=== PATIENT | male | born 1980 | race Caucasian/White ===

== ENCOUNTER 2021-08-25 22:30 | Emergency (ER) | payer OTHER, SELFPAY ==
[2021-08-25 23:09] VITALS: BP 153/100; PULSE 98; RESP 18; TEMP 37; O2SAT 95; BMI 30.6
== END 2021-08-26 01:59 | disposition left against medical advice (07) ==
PROVIDERS: Emergency Provider Emergency Medicine
DX: R11.0 Nausea (principal); M54.50 Low back pain, unspecified
CPT/HCPCS: 99281